=== PATIENT | male | born 1985 | race African-American/Black ===

== ENCOUNTER 2017-12-28 18:55 | Emergency (ER) | payer BC, SELFPAY ==
[2017-12-28 19:21] LABS: Bilirubin Negative (Negative); Blood, Urine Negative (Negative); Clarity CLEAR (Clear); Glucose, Urine (Dipstick) Negative (Negative); Leukocyte Negative (Negative); Nitrite Negative (Negative); Protein, Urine (Dipstick) 30 mg/dL (Neg-Trace); Urobilinogen 0.2 mg/dL (0.2-1.0)
[2017-12-28 19:23] LABS: Bacteria/HPF None Seen HPF (None Seen); Hyaline Casts/LPF 4-6 HYALINE CAST LPF (0-3 Hyaline); Pathc Cast-AUWi Flag 0.43 (0-2.49); Squamous Epithelial 0-3 HPF (0-3); WBC/HPF 0-3 HPF (0-3)
[2017-12-28 19:24] LABS: Renal Epithelial None Seen HPF (0-3); Transitional Epithelial NONE SEEN HPF (0-3)
[2017-12-28 19:26] LABS: #Lymphocytes 0.6 thou/uL (1.20-3.40); #Monocytes 0.3 thou/uL (0.11-0.59); #Neutrophils 4.7 thou/uL (1.40-6.50); %Lymphocytes 10.6 % (21.0-51.0); %Monocytes 5.3 % (0.0-10.0); %Neutrophils 84.1 % (42.0-75.0); Hemoglobin 15.2 g/dL (14.0-18.0); Mean Corpuscular HGB CONC 32.6 g/dL (32.0-36.0); Mean Corpuscular Hemoglobin 29.9 pg (27.0-31.0); Mean Corpuscular Volume 91.8 fL (78.0-98.0); Platelet Count 169 thou/uL (130-400); RBC Distribution Width 11.8 % (11.5-14.5); Red Blood Cell (RBC) Count 5.07 mill/uL (4.70-6.10); White Blood Cell (WBC) Count 5.6 thou/uL (4.8-10.8)
[2017-12-28 19:50] LABS: ALT (SGPT) 14 U/L (8-55); AST (SGOT) 23 U/L (5-34); Albumin 4.4 g/dL (3.5-5.0); Alkaline Phosphatase 74 U/L (40-150); Anion Gap 11 mmol/L (10-20); BUN (Urea Nitrogen) 12 mg/dL (8.9-20.6); Bilirubin, Total 0.6 mg/dL (0.2-1.2); Calc. Creatinine Clearance 0 mL/min (70-130); Calcium 9.4 mg/dL (7.8-10.44); Carbon Dioxide 28 mmol/L (22-29); Chloride 101 mmol/L (98-107); Estimated GFR-MDRD 85; Globulin 3.6 g/dL (2.4-3.5); Glucose 143 mg/dL (70-105); Lipase 29 U/L (8-78); Potassium 4.5 mmol/L (3.5-5.1); Sodium 135 mmol/L (136-145)
[2017-12-28] MEDS ORDERED: Ondansetron HCl/PF 4 MG/2 ML Vial ONE (20:39)
== END 2017-12-28 22:47 | disposition home or self-care (01) ==
LOC: ERS 18:55
DX: A08.4 Viral intestinal infection, unspecified (principal); F17.220 Nicotine dependence, chewing tobacco, uncomplicated
CPT/HCPCS: 36415; 80053; 81003; 81015; 83690; 85025; 96361; 96374; J2405

== ENCOUNTER 2018-06-23 12:33 | Emergency (ER) | payer SELFPAY ==
--- NOTE | 2018-06-23 13:50 | CT ---
Noncontrast enhanced CT images face. HISTORY: Facial injury. Axial images are obtained with coronal and sagittal reconstructions. Images demonstrate the frontal, left ethmoid, maxillary and sphenoid sinuses to be well aerated. Mode rate right ethmoid sinus mucosal thickening seen anteriorly. Extensive dental caries seen. No definite evidence of facial fractures seen. IMPRESSION: no evidence of facial fracture seen.
[2018-06-23] MEDS ORDERED: Gentamicin Ophth Soln 0.3% 5 ml Bottle ONE (14:09)
== END 2018-06-23 14:20 | disposition home or self-care (01) ==
LOC: ERS 12:33
DX: S05.11XA Contusion of eyeball and orbital tissues, right eye, initial encounter (principal); W22.8XXA Striking against or struck by other objects, initial encounter
CPT/HCPCS: 70486

== ENCOUNTER 2019-04-10 08:08 | Emergency (ER) | payer SELFPAY ==
[2019-04-10] MEDS ORDERED: Ketorolac Tromethamine 30 MG/ML VIAL ONE (10:11)
[2019-04-10] MEDS ORDERED: Acetaminophen 500 MG TAB ONE (10:13)
--- NOTE | 2019-04-10 10:17 | CT ---
CT HEAD WITHOUT CONTRAST: Date: 04/10/2019 Axial tomograms obtained through the head without IV enhancement. INDICATION: Headache. Recent head injury. Comparison made to a head CT of 09/11/2015. FINDINGS: Ventricles have normal size and position. There is a nonspecific focus of increased density in the ri ght basal ganglia. This was present on the prior exam and probably represents a subtle calcification. There is no evidence of hemorrhage, mass, or infarct. No acute finding or interval change. The paran lobito sinuses are clear. IMPRESSION: No acute abnormality identified. POS: [facility]
== END 2019-04-10 11:23 | disposition home or self-care (01) ==
LOC: ERS 08:08
DX: G44.309 Post-traumatic headache, unspecified, not intractable (principal); F07.81 Postconcussional syndrome; S00.81XA Abrasion of other part of head, initial encounter; F17.220 Nicotine dependence, chewing tobacco, uncomplicated; W22.8XXA Striking against or struck by other objects, initial encounter
CPT/HCPCS: 70450; 96372; J1885

== ENCOUNTER 2020-01-26 10:22 | Emergency (ER) | payer SELFPAY | END 2020-01-26 11:16 | disposition home or self-care (01) | LOC: ERS 10:22 | DX: K05.219 Aggressive periodontitis, localized, unspecified severity (principal); K02.9 Dental caries, unspecified; F17.220 Nicotine dependence, chewing tobacco, uncomplicated | CPT/HCPCS: 99283 ==

== ENCOUNTER 2020-12-30 08:01 | Emergency (ER) | payer SELFPAY ==
[2020-12-30] MEDS ORDERED: Cyclobenzaprine 10 MG TAB ONE (08:21)
[2020-12-30] MEDS ORDERED: Ketorolac Tromethamine 30 MG/ML VIAL ONE (08:21)
== END 2020-12-30 09:00 | disposition home or self-care (01) ==
LOC: ERS 08:01
DX: R07.81 Pleurodynia (principal); F17.220 Nicotine dependence, chewing tobacco, uncomplicated
CPT/HCPCS: 96372; 99283; J1885